=== PATIENT | female | born 1960 | race Two or more races ===

== ENCOUNTER 2020-07-12 10:43 | Outpatient (CLI) | payer OTHER | END 2020-07-12 10:46 | disposition home or self-care (01) | LOC: SONOGRAMA 10:43 | PROVIDERS: ATTEND Pathology Anatomic Pathology & Clinical Pathology | DX: E04.1 Nontoxic single thyroid nodule (principal) ==

== ENCOUNTER 2024-11-17 14:48 | Outpatient (CLI) | payer OTHER | END 2024-11-17 14:51 | disposition home or self-care (01) | LOC: SONOGRAMA 14:48 | PROVIDERS: ATTEND Pathology Anatomic Pathology | DX: E04.2 Nontoxic multinodular goiter (principal) ==